=== PATIENT | female | born 1950 | race Caucasian/White ===

== ENCOUNTER → 2018-03-25 | Outpatient (CLI) | payer OTHER ==
[~2018-03-25] MED LIST: ASCO10004 PO; CALC1CAP8 PO; CRAN500C6 PO; FERR-46 PO; GARL10002 PO; GINK120C PO; LISI-167 PO; TURM500C4 PO; VITA400C43 PO; magnesium PO
[2018-03-25 16:30] LABS: BASOPHILS # (AUTO) 0.06 x10^3/uL (0-0.1); BASOPHILS % (AUTO) 1 % (0-1); EOSINOPHILS # (AUTO) 0.16 x10^3/uL (0-0.4); EOSINOPHILS % (AUTO) 3 % (1-7); LYMPHOCYTES # (AUTO) 2.12 x10^3/uL (1-3.4); LYMPHOCYTES % (AUTO) 33 % (22-44); MD NO; MEAN CORPUSCULAR HEMOGLOBIN 30.5 pg (27.0-34.8); MEAN CORPUSCULAR HGB CONC 33.9 g/dL (32.4-35.8); MEAN CORPUSCULAR VOLUME 89.7 fL (80-100); MEAN PLATELET VOLUME 8.9 fL (7.4-10.4); MONOCYTES # (AUTO) 0.42 x10^3/uL (0.2-0.8); MONOCYTES % (AUTO) 7 % (2-9); NEUTROPHILS # (AUTO) 3.62 x10^3/uL (1.8-6.8); NEUTROPHILS % (AUTO) 57 % (42-75); PLATELET COUNT 231 x10^3/uL (130-400); RED BLOOD COUNT 4.11 x10^6/uL (3.82-5.3); RED CELL DISTRIBUTION WIDTH 12.9 % (9.6-15.2)
[2018-03-25 16:39] LABS: ALANINE AMINOTRANSFERASE 21 U/L (12-78); ALBUMIN 3.9 g/dL (3.4-5.0); ANION GAP 9 mmol/L (5-15); CALCIUM 9.3 mg/dL (8.5-10.1); CHLORIDE 109 mmol/L (98-107); CREATININE 0.87 mg/dL (0.55-1.02)
[2018-03-25 16:40] LABS: INTERNATIONAL NORMALIZED RATIO 0.98 (0.93-1.1); PROTHROMBIN TIME 10.2 Seconds (9.6-11.5)
[2018-03-25 16:41] LABS: ALKALINE PHOSPHATASE 69 U/L (45-117); BILIRUBIN,TOTAL 0.5 mg/dL (0.2-1.0)
[2018-03-25 17:10] LABS: MICROSCOPIC AUTO
[2018-03-25 17:11] LABS: CULTURE INDICATED? YES
== END | disposition home or self-care (01) ==
LOC: STAR 15:12
PROVIDERS: ATTEND Neurological Surgery
DX: Z01.818 Encounter for other preprocedural examination (principal); M51.36 Other intervertebral disc degeneration, lumbar region; M43.16 Spondylolisthesis, lumbar region; M48.062 Spinal stenosis, lumbar region with neurogenic claudication; Z88.5 Allergy status to narcotic agent; Z88.1 Allergy status to other antibiotic agents
CPT/HCPCS: 36415; 71046; 80053; 81001; 85025; 85610; 85730; 87086; 93005

== ENCOUNTER 2018-04-03 06:26 | Inpatient (IN) | payer OTHER, MEDICARE ==
[~2018-04-03] VITALS: Ht 165.1 cm; Wt 90.1 kg
[2018-04-03] MEDS ORDERED: GABAPENTIN 300 MG CAPSULE PO ONE (07:00)
[2018-04-03] MEDS ORDERED: OXYcodone IR 5MG TABLET PO ONE (07:00)
[2018-04-03] MEDS ORDERED: ACETAMINOPHEN 500 MG TABLET PO ONE (07:00)
[2018-04-03] MEDS: LACTATED RINGERS 1,000 ML IV SCH ×2 (07:39→07:56)
[2018-04-03] MEDS ORDERED: FENTANYL PF 250 MCG/5ML ONE (08:32)
[2018-04-03] MEDS ORDERED: SUCCINYLCHOLINE 20 MG/ML, 10ML ONE (09:50)
[2018-04-03] MEDS ORDERED: PROPOFOL 10 MG/ML, 50ML ONE (09:50)
[2018-04-03] MEDS ORDERED: EPHEDRINE 50 MG/ML, 1ML ONE (09:50)
[2018-04-03] MEDS ORDERED: ONDANSETRON 2MG/ML, 2ML ONE (09:50)
[2018-04-03] MEDS ORDERED: ROCURONIUM 10 MG/ML,10ML ONE (09:50)
[2018-04-03] MEDS ORDERED: CEFAZOLIN 1,000 MG ONE (09:50)
[2018-04-03] MEDS ORDERED: DEXAMETHASONE 4 MG/ML, 1ML ONE (09:50)
[2018-04-03] MEDS ORDERED: PROPOFOL 10 MG/ML, 20ML ONE (09:50)
[2018-04-03] MEDS ORDERED: BUPIVACAINE/PF-EPI 0.5% 1:200K INFIL ONE (11:03)
[2018-04-03] MEDS ORDERED: BACITRACIN 50,000 UNIT IRRIG ONE (11:03)
[2018-04-03] MEDS ORDERED: THROMBIN 5,000 UNIT VIAL TP ONE (11:04)
[2018-04-03] MEDS ORDERED: BUPIVACAINE/PF 0.25% EPIDPUSH ONE (11:05)
[2018-04-03] MEDS ORDERED: FENTANYL PF 100 MCG/2ML EPIDPUSH ONE (11:08)
[2018-04-03] MEDS ORDERED: HALOPERIDOL 5 MG/ML IV PRN (11:30)
[2018-04-03] MEDS ORDERED: PROCHLORPERAZINE 5 MG/ML, 2ML IV PRN (11:30)
[2018-04-03] MEDS ORDERED: HYDROmorphone 2 MG/ML, 1ML IV PRN (11:30)
[2018-04-03] MEDS ORDERED: LABETALOL 5MG/ML, 20ML IV PRN (11:30)
[2018-04-03] MEDS ORDERED: hydrALAzine 20 MG/ML, 1ML IV PRN (11:30)
[2018-04-03] MEDS ORDERED: FENTANYL PF 100 MCG/2ML IV PRN (11:30)
[2018-04-03] MEDS ORDERED: DIPHENHYDRAMINE 50 MG/ML, 1ML IVPush PRN ×2 (11:30→14:00)
[2018-04-03] MEDS ORDERED: OXYcodone 5 MG/5 ML ORAL.SOL UDC PO PRN (11:30)
[2018-04-03] MEDS ORDERED: MEPERIDINE/PF 25MG/0.5ML IVPush PRN (12:00)
[2018-04-03] MEDS ORDERED: FENTANYL PF 100 MCG/2ML ONE (13:12)
[2018-04-03] MEDS ORDERED: HYDROcodone/APAP 10/325 MG TABLET PO PRN (14:00)
[2018-04-03] MEDS ORDERED: BISACODYL 10 MG SUPP PR PRN (14:00)
[2018-04-03] MEDS ORDERED: ONDANSETRON 2MG/ML, 2ML IVPush PRN (14:00)
[2018-04-03] MEDS ORDERED: PROMETHAZINE 25 MG/ML, 1ML IM PRN (14:00)
[2018-04-03] MEDS ORDERED: PHARMACY MAY ADJ FOR RENAL FX MC PRN (14:00)
[2018-04-03] MEDS ORDERED: METHOCARBAMOL 1,000 MG in DEXTROSE 5% 100 ML IV ONE (14:00)
[2018-04-03] MEDS ORDERED: SENNA/DOCUSATE TABLET PO PRN (14:00)
[2018-04-03] MEDS ORDERED: OXYcodone/APAP 5/325MG TABLET PO PRN (14:00)
[2018-04-03] MEDS ORDERED: MORPHINE SULFATE 4 MG/ML, 1ML IVPush PRN (14:00)
[2018-04-03] MEDS ORDERED: OXYcodone 5 MG/5 ML ORAL.SOL UDC ONE (14:33)
[2018-04-03] MEDS: D5%-0.9% NACL+KCL 20MEQ 1,000 ML IV SCH (15:55)
[2018-04-03] MEDS: CEFAZOLIN PMX 1GM/50ML 50 ML IVPB SCH (18:41)
[2018-04-03 20:43] VITALS: BP 111/66
[2018-04-03] MEDS: SODIUM CHLORIDE FLUSH 10ML SYR IVF SCH (21:00)
[2018-04-03] MEDS: HYDROcodone/APAP 5/325 TABLET PO PRN (22:59)
[2018-04-04 00:13] VITALS: BP 113/84
[2018-04-04] MEDS: CEFAZOLIN PMX 1GM/50ML 50 ML IVPB SCH (03:08)
[2018-04-04] MEDS: D5%-0.9% NACL+KCL 20MEQ 1,000 ML IV SCH ×2 (03:43→13:31)
[2018-04-04 04:35] VITALS: BP 101/49
[2018-04-04 07:59] VITALS: BP_SYST 101; BP_SYST 93; BP_DIAS 51; BP_DIAS 55
[2018-04-04 08:46] VITALS: BP 98/56
[2018-04-04] MEDS: FERROUS SULFATE 325 MG TABLET PO SCH (08:49)
[2018-04-04] MEDS: LISINOPRIL 10 MG TABLET PO SCH (08:49)
[2018-04-04] MEDS: SODIUM CHLORIDE FLUSH 10ML SYR IVF SCH ×2 (08:50→21:27)
[2018-04-04] MEDS: HYDROcodone/APAP 5/325 TABLET PO PRN ×4 (09:00→21:27)
[2018-04-04 13:48] VITALS: BP 99/57
[2018-04-04] MEDS: METHOCARBAMOL 750 MG TABLET PO PRN ×2 (14:16→23:08)
[2018-04-04 20:41] VITALS: BP 131/54
[2018-04-05 02:10] VITALS: BP 130/77
[2018-04-05] MEDS: HYDROcodone/APAP 5/325 TABLET PO PRN ×3 (02:31→12:46)
[2018-04-05 07:48] VITALS: BP 117/72
[2018-04-05] MEDS ORDERED: ONDANSETRON ODT 4 MG PO PRN (09:00)
[2018-04-05] MEDS: SODIUM CHLORIDE FLUSH 10ML SYR IVF SCH (09:00)
[2018-04-05] MEDS: FERROUS SULFATE 325 MG TABLET PO SCH (09:05)
[2018-04-05] MEDS: LISINOPRIL 10 MG TABLET PO SCH (09:05)
[2018-04-05] MEDS ORDERED: HYDR-3307 PO (12:02)
[2018-04-05] MEDS ORDERED: CYCL-259 PO (12:04)
[2018-04-05] MEDS ORDERED: CEPH-368 PO (12:05)
[2018-04-05 13:13] VITALS: BP 104/61
== END 2018-04-05 13:53 | disposition home or self-care (01) | DRG 455 ==
LOC: ORIP 06:26 → 4NOR 15:02
PROVIDERS: ADMIT Neurological Surgery; ATTEND Neurological Surgery
PROC: 0SG0071 Fusion of Lumbar Vertebral Joint with Autologous Tissue Substitute, Posterior Approach, Posterior Column, Open Approach (ICD-10-PCS; 2018-04-03)
PROC: 4A11X4G Monitoring of Peripheral Nervous Electrical Activity, Intraoperative, External Approach (ICD-10-PCS; 2018-04-03)
PROC: 0SG00A0 Fusion of Lumbar Vertebral Joint with Interbody Fusion Device, Anterior Approach, Anterior Column, Open Approach (ICD-10-PCS; principal; 2018-04-03 09:30)
DX: M48.062 Spinal stenosis, lumbar region with neurogenic claudication (principal); M43.16 Spondylolisthesis, lumbar region; G89.29 Other chronic pain; M51.16 Intervertebral disc disorders with radiculopathy, lumbar region; I10 Essential (primary) hypertension; Z88.6 Allergy status to analgesic agent; Z88.1 Allergy status to other antibiotic agents; Z91.018 Allergy to other foods
CPT/HCPCS: 72100; C1713; C1729; C1776; G0378; J0690; J1100; J2405; J2704; J3010; J3490; Q0162; C1751; C1762; J0330; J2800; J3480; J7120

== ENCOUNTER 2020-03-01 11:33 | Inpatient (IN) | payer MEDICARE, OTHER ==
[~2020-03-01] VITALS: Ht 167.6 cm; Wt 82.5 kg
[~2020-03-01 11:33] MED LIST changes: +ASCO100018 PO; -ASCO10004 PO; +CEPH-368 PO; +CYCL-259 PO; +HYDR-3246 PO
--- NOTE | 2020-03-01 11:48 | NUR ---
Pt here for right flank pain that procedded to her recieving a renal US that revealed a large mass in right kidney. Pt was asked to come to the ed to rule out potential maligenancy. Pt reports she has had right flank pain but denies any painful urination or blood in urine at this time. Pt resting in bed and call light in reach. Awaiting further orders.
[2020-03-01] MEDS ORDERED: SODIUM CHLORIDE 0.9% 1,000 ML IV ONE (11:59)
[2020-03-01 12:23] LABS: MEAN CORPUSCULAR HEMOGLOBIN 29.1 pg (27.0-34.8); MEAN CORPUSCULAR HGB CONC 33.5 g/dL (32.4-35.8); MEAN PLATELET VOLUME 9.6 fL (7.4-10.4); PLATELET COUNT 150 x10^3/uL (130-400); RED BLOOD COUNT 3.72 x10^6/uL (3.82-5.3); RED CELL DISTRIBUTION WIDTH 15.2 % (9.6-15.2)
[2020-03-01 12:32] LABS: ALANINE AMINOTRANSFERASE 36 U/L (12-78); ALBUMIN 3.7 g/dL (3.4-5.0); ANION GAP 6 mmol/L (5-15); CALCIUM 9.4 mg/dL (8.5-10.1); CHLORIDE 109 mmol/L (98-107); CREATININE 1.55 mg/dL (0.55-1.02)
[2020-03-01 12:34] LABS: ALKALINE PHOSPHATASE 97 U/L (45-117); BILIRUBIN,TOTAL 0.4 mg/dL (0.2-1.0); TOTAL PROTEIN 6.9 g/dL (6.4-8.2)
[2020-03-01 13:12] LABS: MD YES
[2020-03-01 13:15] LABS: BANDS%(MANUAL) 7 % (0-7); BASOS#(MANUAL) 0.03 x10^3/uL (0-0.1); BASOS% (MANUAL) 1 % (0-1); EOS#(MANUAL) 0.08 x10^3/uL (0.0-0.4); EOS% (MANUAL) 3 % (1-7); LYMPH#(MANUAL) 0.62 x10^3/uL (1-3.4); LYMPHS% (MANUAL) 22 % (22-44); MONOS#(MANUAL) 0.17 x10^3/uL (0.3-2.7); MONOS% (MANUAL) 6 % (2-9); REACTIVE LYMPHS # (MANUAL) 0.03 x10^3/uL (0-0); REACTIVE LYMPHS % (MANUAL) 1 % (0-0); SEG#(MANUAL) 1.68 x10^3/uL (1.8-6.8); SEGS% (MANUAL) 60 % (42-75)
[2020-03-01 13:16] LABS: <RBC MORPHOLOGY> NORMAL
[2020-03-01 13:17] LABS: <PLATELET ESTIMATE> ADEQUATE
[2020-03-01 13:18] LABS: <PLT MORPHOLOGY> NORMAL PLT MORPH
[2020-03-01] MEDS ORDERED: OMNIPAQUE 350 MG/ML, 100ML BOTTLE ONE (13:28)
[2020-03-01 13:34] LABS: MICROSCOPIC AUTO
--- NOTE | 2020-03-01 13:42 | NUR ---
All resutls back pt up for recheck.
[2020-03-01] MEDS ORDERED: SODIUM CHLORIDE FLUSH 10ML SYR IVF PRN (14:30)
[2020-03-01] MEDS ORDERED: hydrALAzine 20 MG/ML, 1ML IVPush PRN (15:00)
[2020-03-01] MEDS ORDERED: ACETAMINOPHEN 325 MG TABLET PO PRN (15:00)
[2020-03-01] MEDS ORDERED: ONDANSETRON 2MG/ML, 2ML IVPush PRN (15:00)
[2020-03-01] MEDS ORDERED: LABETALOL 5MG/ML, 20ML IVPush PRN (15:00)
[2020-03-01] MEDS ORDERED: TRAZODONE 50MG TABLET PO PRN (15:00)
[2020-03-01] MEDS ORDERED: DOCUSATE 100 MG CAPSULE PO PRN (15:00)
--- NOTE | 2020-03-01 15:09 | NUR ---
[facility] family called for sleep aid medication
[2020-03-01] MEDS: LACTATED RINGERS 1,000 ML IV SCH (15:30)
[2020-03-01 15:43] LABS: INTERNATIONAL NORMALIZED RATIO 0.99 (0.93-1.1); PROTHROMBIN TIME 10.2 Seconds (9.6-11.5)
[2020-03-01 16:27] VITALS: BP 137/70
[2020-03-01 19:37] VITALS: BP 101/69
[2020-03-02 02:38] VITALS: BP 110/70
[2020-03-02] MEDS: LACTATED RINGERS 1,000 ML IV SCH ×2 (04:43→11:44)
[2020-03-02 05:33] LABS: MEAN CORPUSCULAR HEMOGLOBIN 28.8 pg (27.0-34.8); MEAN CORPUSCULAR HGB CONC 32.6 g/dL (32.4-35.8); MEAN CORPUSCULAR VOLUME 88.2 fL (80-100); MEAN PLATELET VOLUME 9.1 fL (7.4-10.4); PLATELET COUNT 144 x10^3/uL (130-400); RED BLOOD COUNT 3.37 x10^6/uL (3.82-5.3)
[2020-03-02 05:34] LABS: ANION GAP 6 mmol/L (5-15); CHLORIDE 114 mmol/L (98-107); CREATININE 1.05 mg/dL (0.55-1.02)
[2020-03-02 06:23] LABS: MD YES
[2020-03-02 06:25] LABS: BASOS#(MANUAL) 0.02 x10^3/uL (0-0.1); BASOS% (MANUAL) 1 % (0-1); EOS#(MANUAL) 0.05 x10^3/uL (0.0-0.4); EOS% (MANUAL) 2 % (1-7); LYMPH#(MANUAL) 0.94 x10^3/uL (1-3.4); LYMPHS% (MANUAL) 39 % (22-44); MONOS#(MANUAL) 0.22 x10^3/uL (0.3-2.7); MONOS% (MANUAL) 9 % (2-9); REACTIVE LYMPHS # (MANUAL) 0.02 x10^3/uL (0-0); REACTIVE LYMPHS % (MANUAL) 1 % (0-0); SEG#(MANUAL) 1.15 x10^3/uL (1.8-6.8); SEGS% (MANUAL) 48 % (42-75)
[2020-03-02 06:27] LABS: <PLATELET ESTIMATE> ADEQUATE; <PLT MORPHOLOGY> NORMAL PLT MORPH; <RBC MORPHOLOGY> NORMAL
[2020-03-02 07:30] VITALS: BP 112/71
[2020-03-02] MEDS ORDERED: LISINOPRIL 10 MG TABLET PO SCH (09:00)
[2020-03-02] MEDS ORDERED: TRAZ50TA66 PO (13:06)
[2020-03-02 13:33] VITALS: BP 113/73
== END 2020-03-02 15:51 | disposition home or self-care (01) | DRG 687 ==
LOC: ED 12:42 → EDIP 14:15 → 4NW 16:04
PROVIDERS: ADMIT Student in an Organized Health Care Education/Training Program; ATTEND Student in an Organized Health Care Education/Training Program
DX: C64.9 Malignant neoplasm of unspecified kidney, except renal pelvis (principal); N17.9 Acute kidney failure, unspecified; D72.819 Decreased white blood cell count, unspecified; I10 Essential (primary) hypertension; N30.90 Cystitis, unspecified without hematuria; K42.9 Umbilical hernia without obstruction or gangrene; Z96.642 Presence of left artificial hip joint; G89.29 Other chronic pain; F41.9 Anxiety disorder, unspecified; N81.4 Uterovaginal prolapse, unspecified; Z79.899 Other long term (current) drug therapy; Z87.440 Personal history of urinary (tract) infections; Z88.5 Allergy status to narcotic agent
CPT/HCPCS: 36415; 74178; 80048; 80053; 81001; 85025; 85610; 87077; 87086; 87186; G0378; Q9967; J7030; J7120

== ENCOUNTER → 2020-05-05 | Outpatient (CLI) | payer OTHER ==
[~2020-05-05] MED LIST changes: +ASCO500T8 PO; +CRAN1CAP PO; +GINK60TA PO; +Iron PO; +JOINT JUICE PO; +L.AC1CAP6 PO; +TRAZ50TA66 PO
== END | disposition home or self-care (01) ==
LOC: STAR 15:34
PROVIDERS: ATTEND Urology
DX: Z01.812 Encounter for preprocedural laboratory examination (principal); Z20.828 Contact with and (suspected) exposure to other viral communicable diseases; N28.89 Other specified disorders of kidney and ureter
CPT/HCPCS: 36415; 87635; 93005

== ENCOUNTER 2020-05-11 12:00 | Inpatient (IN) | payer OTHER, MEDICARE ==
[~2020-05-11] VITALS: Ht 167.6 cm; Wt 79.4 kg
[2020-05-11] MEDS ORDERED: CHLORHEXIDINE 15 ML UDC MM ONE (12:30)
[2020-05-11] MEDS ORDERED: LACTATED RINGERS 1,000 ML IV SCH (12:30)
[2020-05-11] MEDS ORDERED: MIDAZOLAM 1 MG/ML, 2ML ONE (13:07)
[2020-05-11] MEDS ORDERED: FENTANYL PF 250 MCG/5ML ONE (13:07)
[2020-05-11] MEDS ORDERED: PROPOFOL 50 ML ONE (13:30)
[2020-05-11] MEDS ORDERED: ROCURONIUM 10 MG/ML,10ML ONE (13:35)
[2020-05-11] MEDS ORDERED: ONDANSETRON 2MG/ML, 2ML ONE (13:35)
[2020-05-11] MEDS ORDERED: DEXAMETHASONE 4 MG/ML, 1ML ONE (13:35)
[2020-05-11] MEDS ORDERED: PROPOFOL 10 MG/ML, 20ML ONE (13:35)
[2020-05-11] MEDS ORDERED: SUCCINYLCHOLINE 20 MG/ML, 10ML ONE (13:35)
[2020-05-11] MEDS ORDERED: CEFAZOLIN 1,000 MG ONE (13:35)
[2020-05-11] MEDS ORDERED: BUPIVACAINE/PF 0.5% INFIL ONE (14:21)
[2020-05-11] MEDS ORDERED: HYDROcodone/APAP 7.5-325MG/15ML UDC PO PRN (16:00)
[2020-05-11] MEDS ORDERED: DIAZEPAM 5 MG/ML, 2ML IVPush PRN (16:00)
[2020-05-11] MEDS ORDERED: DIPHENHYDRAMINE 50 MG/ML, 1ML IVPush PRN (16:00)
[2020-05-11] MEDS ORDERED: OXYcodone 5 MG/5 ML ORAL.SOL UDC PO PRN (16:00)
[2020-05-11] MEDS ORDERED: MEPERIDINE/PF 25MG/0.5ML IVPush PRN (16:00)
[2020-05-11] MEDS ORDERED: ACETAMINOPHEN 325 MG TABLET PO PRN (16:00)
[2020-05-11] MEDS ORDERED: ONDANSETRON 2MG/ML, 2ML IV PRN (16:00)
[2020-05-11] MEDS ORDERED: EPHEDRINE 50 MG/ML, 1ML IM PRN (16:00)
[2020-05-11] MEDS ORDERED: POTASSIUM CHLORIDE 20 MEQ in D5%-0.45% NACL 1,000 ML IV SCH (16:00)
[2020-05-11] MEDS ORDERED: LABETALOL 5MG/ML, 20ML IV PRN (16:00)
[2020-05-11] MEDS ORDERED: EPHEDRINE 50 MG/ML, 1ML IVPush PRN (16:00)
[2020-05-11] MEDS ORDERED: ONDANSETRON 2MG/ML, 2ML IVPush PRN (16:00)
[2020-05-11] MEDS ORDERED: PROMETHAZINE 25 MG/ML, 1ML IVPush PRN (16:00)
[2020-05-11] MEDS: FENTANYL PF 100 MCG/2ML IV PRN ×4 (16:26→16:49)
[2020-05-11] MEDS ORDERED: FENTANYL PF 100 MCG/2ML ONE (16:29)
[2020-05-11] MEDS ORDERED: HYDROcodone/APAP 7.5-325MG/15ML UDC ONE (16:29)
[2020-05-11] MEDS ORDERED: HYDROmorphone 1 MG/ML, 1ML INJ ONE (16:56)
[2020-05-11] MEDS: HYDROmorphone 1 MG/ML, 1ML INJ IVPush PRN ×2 (16:57→17:07)
[2020-05-11] MEDS ORDERED: PROMETHAZINE 25 MG/ML, 1ML ONE (17:26)
[2020-05-11 19:50] VITALS: BP 121/78
[2020-05-11] MEDS: HYDROcodone/APAP 5/325 TABLET PO PRN (20:38)
[2020-05-12] MEDS: HYDROcodone/APAP 5/325 TABLET PO PRN ×6 (00:46→23:20)
[2020-05-12 04:00] VITALS: BP 116/69
[2020-05-12 06:10] LABS: ANION GAP 5 mmol/L (5-15); CALCIUM 9.1 mg/dL (8.5-10.1); CHLORIDE 112 mmol/L (98-107); CREATININE 1.51 mg/dL (0.55-1.02)
[2020-05-12 07:35] VITALS: BP 126/71
[2020-05-12] MEDS: LACTATED RINGERS 1,000 ML IV SCH ×2 (08:30→21:24)
[2020-05-12 13:20] VITALS: BP 111/73
[2020-05-12 19:45] VITALS: BP 123/64
[2020-05-13 02:00] VITALS: BP 140/75
[2020-05-13] MEDS: HYDROcodone/APAP 5/325 TABLET PO PRN ×2 (04:59→13:03)
[2020-05-13 06:29] LABS: CALCIUM 9.4 mg/dL (8.5-10.1); CHLORIDE 107 mmol/L (98-107)
[2020-05-13 06:33] LABS: ANION GAP 6 mmol/L (5-15); CREATININE 1.42 mg/dL (0.55-1.02)
[2020-05-13 07:25] VITALS: BP 128/71
[2020-05-13] MEDS: LACTATED RINGERS 1,000 ML IV SCH (11:10)
[2020-05-13] MEDS ORDERED: HYDR-3240 PO (13:23)
[2020-05-13 15:30] VITALS: BP 128/80
== END 2020-05-13 15:42 | disposition home or self-care (01) | DRG 661 ==
LOC: ORIP 12:00 → 2NW 17:50 → DCLOUNGE 05-13 15:35
PROVIDERS: ADMIT Urology; ATTEND Urology
PROC: 0TT04ZZ Resection of Right Kidney, Percutaneous Endoscopic Approach (ICD-10-PCS; principal; 2020-05-11 14:00)
DX: N28.89 Other specified disorders of kidney and ureter (principal)
CPT/HCPCS: 36415; S0020; 80048; 85018; 86850; 86870; 86880; 86900; 86922; 86923; 88307; G0378; J0690; J1100; J1170; J2250; J2405; J2704; J3010; J3480; J0330; J7120

== ENCOUNTER → 2020-09-13 | Outpatient (CLI) | payer OTHER ==
[~2020-09-13] MED LIST changes: -CYCL-259 PO; +CYCL10TA2 PO; +HYDR-1067 PO; -HYDR-3246 PO; +HYDR-3248 PO; +OMNIPAQUE 350 MG/ML, 100ML BOTTLE ONE
== END | disposition home or self-care (01) ==
LOC: CFH 12:11
PROVIDERS: ATTEND Urology
DX: K42.9 Umbilical hernia without obstruction or gangrene (principal); M51.34 Other intervertebral disc degeneration, thoracic region; M47.817 Spondylosis without myelopathy or radiculopathy, lumbosacral region; Z85.528 Personal history of other malignant neoplasm of kidney
CPT/HCPCS: 71260; 74160; Q9967

== ENCOUNTER → 2020-11-10 | Outpatient (CLI) | payer OTHER ==
[~2020-11-10] MED LIST changes: +CRAN300T PO; -HYDR-1067 PO; +HYDR-2214 PO; +LISI20TA21 PO; -OMNIPAQUE 350 MG/ML, 100ML BOTTLE ONE
[2020-11-10 14:18] LABS: ALANINE AMINOTRANSFERASE 24 U/L (12-78); ALBUMIN 3.9 g/dL (3.4-5.0); ALKALINE PHOSPHATASE 113 U/L (45-117); BILIRUBIN,TOTAL 0.4 mg/dL (0.2-1.0); CALCIUM 9.3 mg/dL (8.5-10.1)
[2020-11-10 14:29] LABS: ANION GAP 5 mmol/L (5-15); CHLORIDE 111 mmol/L (98-107)
== END | disposition home or self-care (01) ==
LOC: STAR 12:22
PROVIDERS: ATTEND Surgery
DX: Z01.818 Encounter for other preprocedural examination (principal); K43.2 Incisional hernia without obstruction or gangrene; K43.9 Ventral hernia without obstruction or gangrene; Z20.822 Contact with and (suspected) exposure to COVID-19
CPT/HCPCS: 36415; 80053; 93005; U0003; U0005

== ENCOUNTER 2020-11-16 06:06 | Day surgery (SDC) | payer OTHER ==
[~2020-11-16] VITALS: Ht 167.6 cm; Wt 80.8 kg
[2020-11-16 06:25] VITALS: BP 144/86
[2020-11-16] MEDS ORDERED: LIDOCAINE-MPF 1%, 2ML INFIL ONE (06:30)
[2020-11-16] MEDS ORDERED: CHLORHEXIDINE 15 ML UDC PO ONE (06:30)
[2020-11-16] MEDS ORDERED: LACTATED RINGERS 1,000 ML IV SCH (06:30)
[2020-11-16] MEDS ORDERED: EPINEPHRINE 1 MG/ML, 1ML ONE (06:42)
[2020-11-16] MEDS ORDERED: BUPIVACAINE/PF 0.5% ONE ×2 (06:42→07:40)
[2020-11-16] MEDS ORDERED: FENTANYL PF 250 MCG/5ML ONE (07:10)
[2020-11-16] MEDS ORDERED: MIDAZOLAM 1 MG/ML, 2ML ONE (07:10)
[2020-11-16] MEDS ORDERED: OXYcodone 5 MG/5 ML ORAL.SOL UDC PO PRN ×2 (07:30→10:00)
[2020-11-16] MEDS ORDERED: PROMETHAZINE 25 MG/ML, 1ML IVPush PRN (07:30)
[2020-11-16] MEDS ORDERED: hydrALAzine 20 MG/ML, 1ML IV PRN (07:30)
[2020-11-16] MEDS ORDERED: MEPERIDINE/PF 25MG/0.5ML IVPush PRN (07:30)
[2020-11-16] MEDS ORDERED: HYDROmorphone 1 MG/ML, 1ML INJ IVPush PRN (07:30)
[2020-11-16] MEDS ORDERED: ACETAMINOPHEN 325 MG TABLET PO PRN (07:30)
[2020-11-16] MEDS ORDERED: HALOPERIDOL 5 MG/ML IV PRN (07:30)
[2020-11-16] MEDS ORDERED: DIPHENHYDRAMINE 50 MG/ML, 1ML IVPush PRN (07:30)
[2020-11-16] MEDS ORDERED: LABETALOL 5MG/ML, 20ML IV PRN (07:30)
[2020-11-16] MEDS ORDERED: ROCURONIUM 10MG/ML,5ML ONE (09:29)
[2020-11-16] MEDS ORDERED: ONDANSETRON 2MG/ML, 2ML ONE (09:29)
[2020-11-16] MEDS ORDERED: DEXAMETHASONE 4 MG/ML, 1ML ONE (09:29)
[2020-11-16] MEDS ORDERED: CEFAZOLIN 1,000 MG ONE (09:29)
[2020-11-16] MEDS ORDERED: SUCCINYLCHOLINE 20 MG/ML, 10ML ONE (09:29)
[2020-11-16] MEDS ORDERED: GLYCOPYRROLATE 0.2MG/1ML, 5ML ONE (09:29)
[2020-11-16] MEDS ORDERED: PROPOFOL 10 MG/ML, 20ML ONE (09:29)
[2020-11-16] MEDS ORDERED: NEOSTIGMINE 1 MG/ML, 10ML ONE (09:29)
[2020-11-16] MEDS ORDERED: HYDR-3237 PO (09:46)
[2020-11-16] MEDS ORDERED: PROMETHAZINE 25 MG/ML, 1ML ONE (10:04)
[2020-11-16] MEDS ORDERED: FENTANYL PF 100 MCG/2ML ONE ×2 (10:08→10:41)
[2020-11-16] MEDS: FENTANYL PF 100 MCG/2ML IV PRN ×4 (10:10→10:43)
[2020-11-16] MEDS ORDERED: HALOPERIDOL 5 MG/ML ONE (10:21)
[2020-11-16] MEDS ORDERED: HYDROcodone/APAP 7.5-325MG/15ML UDC ONE (10:41)
[2020-11-16] MEDS: HYDROcodone/APAP 7.5-325MG/15ML UDC PO PRN ×2 (10:43→12:27)
== END 2020-11-16 13:15 | disposition home or self-care (01) ==
LOC: OUT 06:06
PROVIDERS: ATTEND Surgery
DX: K43.2 Incisional hernia without obstruction or gangrene (principal); K42.9 Umbilical hernia without obstruction or gangrene; I10 Essential (primary) hypertension; Z79.899 Other long term (current) drug therapy; Z85.528 Personal history of other malignant neoplasm of kidney; Z88.5 Allergy status to narcotic agent; Z88.8 Allergy status to other drugs, medicaments and biological substances; Z82.49 Family history of ischemic heart disease and other diseases of the circulatory system
CPT/HCPCS: 49652; 49654; C1781; J0171; J0330; J0690; J1100; J1630; J2250; J2405; J2550; J2704; J2710; J3010; J7120

== ENCOUNTER 2021-02-24 09:35 | Outpatient (CLI) | payer OTHER, MEDICARE ==
[~2021-02-24 09:35] MED LIST changes: +HYDR-3237 PO
[2021-02-24 10:08] LABS: ALANINE AMINOTRANSFERASE 22 U/L (12-78); ALBUMIN 3.8 g/dL (3.4-5.0); ANION GAP 4 mmol/L (5-15); CALCIUM 9.3 mg/dL (8.5-10.1); CHLORIDE 112 mmol/L (98-107); CREATININE 1.33 mg/dL (0.55-1.02)
[2021-02-24 10:11] LABS: ALKALINE PHOSPHATASE 115 U/L (45-117); BILIRUBIN,TOTAL 0.4 mg/dL (0.2-1.0); TOTAL PROTEIN 7.1 g/dL (6.4-8.2)
== END 2021-02-24 23:59 | disposition home or self-care (01) ==
LOC: LAB 09:35
PROVIDERS: ATTEND Physician Assistant
DX: Z85.528 Personal history of other malignant neoplasm of kidney (principal)
CPT/HCPCS: 36415; 80053

== ENCOUNTER 2021-03-03 08:40 | Outpatient (CLI) | payer MEDICARE ==
[2021-03-03] MEDS ORDERED: OMNIPAQUE 350 MG/ML, 100ML BOTTLE ONE (09:25)
== END 2021-03-03 23:59 | disposition home or self-care (01) ==
LOC: CFH 08:40
PROVIDERS: ATTEND Physician Assistant
DX: K46.9 Unspecified abdominal hernia without obstruction or gangrene (principal); D25.9 Leiomyoma of uterus, unspecified; N83.8 Other noninflammatory disorders of ovary, fallopian tube and broad ligament; Z85.528 Personal history of other malignant neoplasm of kidney
CPT/HCPCS: 71260; 74177; Q9967